=== PATIENT | male | born 1965 ===

== ENCOUNTER 2024-08-24 23:37 | Emergency (ER) | payer MEDICAID ==
[~2024-08-24] VITALS: Ht 185.4 cm; Wt 80.0 kg
[2024-08-24 23:39] VITALS: BP 128/71; PULSE 72; RESP 16; TEMP 98.6; O2SAT 99
[2024-08-25 02:15] LABS: BASOPHILS % (AUTO) 0.5 % (0.0-2.0); HEMATOCRIT 45.8 % (41-53); HEMOGLOBIN 15.4 g/dL (13.5-17.5); LYMPHOCYTES # (AUTO) 0.9 K/uL (1.0-4.8); LYMPHOCYTES % (AUTO) 18.2 % (22.0-44.0); MEAN CORPUSCULAR HEMOGLOBIN 30.8 pg (26.0-34.0); MEAN CORPUSCULAR HGB CONC 33.6 G/dL (31.0-37.0); MEAN CORPUSCULAR VOLUME 92 fL (80-100); MONOCYTES # (AUTO) 0.6 K/uL (0.1-1.0); MONOCYTES % (AUTO) 12.6 % (2.0-9.0); NEUTROPHILS # (AUTO) 3.3 K/uL (1.8-7.7); NEUTROPHILS % (AUTO) 67.7 % (40.0-70.0); PLATELET COUNT (AUTO) 144 K/uL (150-450); RED BLOOD CELL COUNT(AUTO) 4.99 MIL/uL (4.50-5.90); RED CELL DISTRIBUTION WIDTH 13.2 % (11.5-14.5); WHITE BLOOD COUNT (AUTO) 4.9 K/uL (4.5-11.0)
[2024-08-25 02:25] LABS: ANION GAP 8 mmol/L (8-16); CALCIUM, TOTAL 8.8 mg/dL (8.8-10.5); CARBON DIOXIDE 30 mmol/L (22-29); CHLORIDE 99 mmol/L (98-107); CREATININE 1.19 mg/dL (0.60-1.30); GLOMERULAR FILTR. RATE CALC > 60 mL/min (>60); GLUCOSE,RANDOM 112 mg/dL (70-110); POTASSIUM 4.4 mmol/L (3.5-5.1); SODIUM SERUM 136 mmol/L (136-145); UREA NITROGEN, BLOOD 14 mg/dL (7-18)
[2024-08-25 02:27] LABS: ALCOHOL, BLOOD (SERUM) < 3 mg/dL (0-10)
[2024-08-25 02:41] LABS: TROPONIN I-HIGH SENSITIVITY 4 ng/L (<76)
[2024-08-25] MEDS ORDERED: GUAIFDM PO (04:11)
[2024-08-25] MEDS ORDERED: ACET-66 PO (04:11)
[2024-08-25] MEDS: ACETAMINOPHEN 500 MG TABLET PO ONE (04:16)
[2024-08-25] MEDS: GuaiFENesin/D-METHORPHAN [SUGAR-FREE] 200-20MG/10 ML SYRUP UDCUP PO ONE (04:16)
== END 2024-08-25 04:29 | disposition home or self-care (01) ==
LOC: EDUNIT# 23:37 → EMS 23:46
DX: J06.9 Acute upper respiratory infection, unspecified (principal); I10 Essential (primary) hypertension; R44.0 Auditory hallucinations
CPT/HCPCS: 99284; 80048; 84484; 85025; 36415; 93005; G0480